=== PATIENT | male | born 1970 | race Two or more races ===

== ENCOUNTER 2020-07-05 07:28 | Day surgery (SDC) | payer MEDICAID ==
[2020-06-29 15:45] LABS: BASOPHILS # (AUTO) 0.1 X10'3 (0-0.2); BASOPHILS % (AUTO) 0.7 % (0-1); EOSINOPHILS # (AUTO) 0.5 X10'3 (0-0.9); EOSINOPHILS % (AUTO) 6.8 % (0-6); LYMPHOCYTES # (AUTO) 2.7 X10'3 (1.1-4.8); LYMPHOCYTES % (AUTO) 34.1 % (21-51); MEAN CORPUSCULAR HEMOGLOBIN 28.9 PG (27.0-31.0); MEAN CORPUSCULAR VOLUME 84.9 FL (78-98); MONOCYTES # (AUTO) 0.6 X10'3 (0-0.9); MONOCYTES % (AUTO) 7.1 % (2-12); NEUTROPHILS # (AUTO) 4.1 X10'3 (1.8-7.7); NEUTROPHILS % (AUTO) 51.3 % (42-75); PRE OP PLATELET COUNT 194 X10'3 (140-440); RED BLOOD COUNT 5.54 X10'6 (4.70-6.10); RED CELL DISTRIBUTION WIDTH 13.6 % (11.5-14.5)
[2020-06-29 15:48] LABS: CLARITY,URINE CLEAR (Clear); COLOR,URINE YELLOW (Yellow); GLUCOSE, URINE NEGATIVE (Neg); KETONES,URINE NEGATIVE (Neg); LEUKOCYTE ESTERASE ,URINE NEGATIVE (Neg); NITRITES, URINE NEGATIVE (Neg); OCCULT BLOOD,URINE NEGATIVE (Neg); PROTEIN,URINE NEGATIVE (Neg)
[2020-06-29 15:50] LABS: UA COLLECTION TYPE CLN CATCH MIDSTREAM
[2020-06-29 16:00] LABS: ALBUMIN 4.1 G/DL (3.4-5.0); ALBUMIN/GLOBULIN RATIO 1.1 (1.1-1.5); ALKALINE PHOSPHATASE 45 IU/L (46-116); BLOOD UREA NITROGEN 21 MG/DL (7-18); BUN/CREATININE RATIO 14.9 (5.4-32.0); CALCIUM 9.3 MG/DL (8.5-10.1); CHLORIDE 106 MMOL/L (99-107); CREATININE 1.41 MG/DL (0.60-1.10); PRE OP ALT 28 U/L (30-65); PRE OP ANION GAP 7 (8-16); PRE OP AST 13 U/L (10-37); PRE OP BILIRUB, TOTAL 0.4 MG/DL (0.0-1.0); PRE OP GLUCOSE 120 MG/DL (70-104); PRE OP POTASSIUM 4.2 MMOL/L (3.4-5.1); PRE OP SODIUM 143 MMOL/L (135-145); TOTAL PROTEIN 7.7 G/DL (6.4-8.2); eGFR 53 ML/MIN
[~2020-07-05] VITALS: Ht 165.1 cm; Wt 114.0 kg
[2020-07-05] VITALS (8 sets, daily range): BP systolic 116–138; BP diastolic 71–77
[~2020-07-05 07:28] MED LIST: CHLO25TA10 PO; GLIM2TAB6 PO; LOSA100T57 PO; METF-438 PO; ceFAZolin 2gm in dextrose, iso 50 ML IV ONE; famotidine 20mg tablet PO ONE; ringers solution, lacted 1,000 ML IV SCH
[2020-07-05] MEDS ORDERED: BUPIVAcaine/PF 2.5 mg/ml (0.25%) 30ml vial ONE (11:48)
[2020-07-05] MEDS ORDERED: neostigmine methylsulfate 1 MG/ML 10ml vial ONE (11:59)
[2020-07-05] MEDS ORDERED: dexamethasone sod phosphate 10mg/ml inj ONE (11:59)
[2020-07-05] MEDS ORDERED: glycopyrrolate 0.2mg/ml inj ONE (11:59)
[2020-07-05] MEDS ORDERED: rocuronium 10mg/ml inj IV ONE ×2 (11:59→12:19)
[2020-07-05] MEDS ORDERED: sevoflurane 250ml liquid IH ONE (11:59)
[2020-07-05] MEDS ORDERED: ondansetron/PF 4mg/2ml inj IV PRN (12:00)
[2020-07-05] MEDS ORDERED: fentaNYL/PF 50MCG/1 ML 2ML syringe IV PRN ×2 (12:00)
[2020-07-05] MEDS ORDERED: morphine 4 MG/ML inj SYRINge IV PRN (12:00)
[2020-07-05] MEDS ORDERED: morphine 2 MG/ML inj. syringe IV PRN (12:00)
[2020-07-05] MEDS ORDERED: labetalol 20mg/4ml (5mg/ml) syringe IV PRN (12:00)
[2020-07-05] MEDS ORDERED: hydrALAZINE 20mg/ml inj. IV PRN (12:00)
[2020-07-05] MEDS ORDERED: ringers solution, lacted 1,000 ML IV SCH (12:00)
[2020-07-05] MEDS ORDERED: midazolam 2 mg/2 ml injection ONE (12:06)
[2020-07-05] MEDS ORDERED: fentaNYL/PF 50MCG/1 ML 2ML syringe ONE ×2 (12:06→13:53)
[2020-07-05] MEDS ORDERED: LIDOcaine 2% (20mg/ml) 5ml vial ONE (12:19)
[2020-07-05] MEDS ORDERED: propofol inj 20 ML IV ONE (12:19)
[2020-07-05] MEDS ORDERED: labetalol 20mg/4ml (5mg/ml) syringe IV ONE (12:22)
[2020-07-05] MEDS ORDERED: ondansetron/PF 4mg/2ml inj ONE (12:25)
--- NOTE | 2020-07-05 14:25 | NUR ---
Received from OR via BED , accompanied by Anesthesiologist DR WING and report given by Anesthesiolgist. PATIENT WAKING UP, DENIES PAIN, V/S WNL, NEUROVASCULAR CHECKS INTACT, 20G PIV RUE, SCD ON, BANDAIDS TO LAP SIGHTS OF ABDOMEN CDI. BG 258 DR WING NOTIFIED, NO NEW ORDERS, PATIENT ADVISED TO TAKE DIABETIC MEDS AFTER D/C ORDERED
[2020-07-05] MEDS ORDERED: HYDROcodone/acetaminophen 10/325mg tab PO ONE (14:45)
--- NOTE | 2020-07-05 15:25 | NUR ---
PATIENT A&OX4, DENIES PAIN, V/S WNL, NEUROVASCULAR CHECKS INTACT, 20G PIV RUE D/C SCD OFF, BANDAIDS TO LAP SIGHTS OF ABDOMEN CDI. BG 258 DR WING NOTIFIED, NO NEW ORDERS, PATIENT ADVISED TO TAKE DIABETIC MEDS AFTER D/C ORDERED AND STUDENT SERVICES DEAN SCRIPT AT [facility] . . I HAVE REVIEWED D/C INSTRUCTIONS WITH PATIENT AND FAMILY AND THEY HAVE VERBALIZED UNDERSTANDING. PATIENT D/C HOME WITH FAMILY TO TRANSPORT AND ALL BELONGINGS..
== END 2020-07-05 15:25 | disposition home or self-care (01) ==
LOC: PAS 07:28
PROVIDERS: ATTEND Surgery
DX: K43.0 Incisional hernia with obstruction, without gangrene (principal); E11.22 Type 2 diabetes mellitus with diabetic chronic kidney disease; I12.9 Hypertensive chronic kidney disease with stage 1 through stage 4 chronic kidney disease, or unspecified chronic kidney disease; N18.9 Chronic kidney disease, unspecified; G47.30 Sleep apnea, unspecified; E66.01 Morbid (severe) obesity due to excess calories; Z68.41 Body mass index [BMI] 40.0-44.9, adult; Z20.828 Contact with and (suspected) exposure to other viral communicable diseases; Z79.899 Other long term (current) drug therapy; Z98.890 Other specified postprocedural states; Z72.89 Other problems related to lifestyle; Z79.84 Long term (current) use of oral hypoglycemic drugs; Z83.3 Family history of diabetes mellitus; Z80.9 Family history of malignant neoplasm, unspecified
CPT/HCPCS: 36415; 49655; 80053; 81003; 82948; 85025; 87635; 93005; C1758; C1781; J2001; J2250; J2405; J2704; J3010; J3490; S2900; A4215; A4618; J1100; J2710; J7120

== ENCOUNTER 2020-10-18 06:41 | Day surgery (SDC) | payer MEDICAID ==
[2020-09-27 15:44] LABS: BASOPHILS # (AUTO) 0.1 X10'3 (0-0.2); BASOPHILS % (AUTO) 0.8 % (0-1); EOSINOPHILS # (AUTO) 0.6 X10'3 (0-0.9); EOSINOPHILS % (AUTO) 6.7 % (0-6); LYMPHOCYTES # (AUTO) 2.8 X10'3 (1.1-4.8); LYMPHOCYTES % (AUTO) 33.1 % (21-51); MEAN CORPUSCULAR HEMOGLOBIN 28.5 PG (27.0-31.0); MEAN CORPUSCULAR HGB CONC 34.2 g/dL (33.0-36.5); MEAN CORPUSCULAR VOLUME 83.3 FL (78-98); MEAN PLATELET VOLUME 8.6 FL (7.4-10.4); MONOCYTES # (AUTO) 0.7 X10'3 (0-0.9); NEUTROPHILS # (AUTO) 4.4 X10'3 (1.8-7.7); NEUTROPHILS % (AUTO) 51.4 % (42-75); PRE OP HEMATOCRIT 47.4 % (42.0-52.0); PRE OP HEMOGLOBIN 16.2 g/dL (14.0-17.9); PRE OP PLATELET COUNT 206 X10'3 (140-440); RED BLOOD COUNT 5.69 X10'6 (4.70-6.10); RED CELL DISTRIBUTION WIDTH 13.6 % (11.5-14.5)
[2020-09-27 15:49] LABS: CLARITY,URINE CLEAR (Clear); COLOR,URINE YELLOW (Yellow); GLUCOSE, URINE NEGATIVE (Neg); KETONES,URINE NEGATIVE (Neg); LEUKOCYTE ESTERASE ,URINE NEGATIVE (Neg); NITRITES, URINE NEGATIVE (Neg); OCCULT BLOOD,URINE NEGATIVE (Neg); PH,URINE 5.5 (4.8-8.0); PROTEIN,URINE NEGATIVE (Neg); UROBILINOGEN,URINE 0.2 E.U/dL (0.2-1.0)
[2020-09-27 15:51] LABS: UA COLLECTION TYPE CLN CATCH MIDSTREAM
[2020-09-27 16:11] LABS: ALBUMIN/GLOBULIN RATIO 1.1 (1.1-1.5); ALKALINE PHOSPHATASE 56 IU/L (46-116); BLOOD UREA NITROGEN 25 MG/DL (7-18); BUN/CREATININE RATIO 20.7 (5.4-32.0); CALCIUM 9.4 MG/DL (8.5-10.1); CHLORIDE 101 MMOL/L (99-107); CREATININE 1.21 MG/DL (0.60-1.10); PRE OP ALT 18 U/L (30-65); PRE OP ANION GAP 9 (8-16); PRE OP AST 13 U/L (10-37); PRE OP BILIRUB, TOTAL 0.4 MG/DL (0.0-1.0); PRE OP GLUCOSE 172 MG/DL (70-104); PRE OP SODIUM 139 MMOL/L (135-145); TOTAL CARBON DIOXIDE 29.4 MMOL/L (24-32); TOTAL PROTEIN 7.6 G/DL (6.4-8.2); eGFR 63 ML/MIN
--- NOTE | 2020-10-10 10:09 | NUR ---
phone pre-op done with pt, instr given. verbal covid screen done. pt was rescheduled from last week due chest cold, per pt it was not covid, pt made aware he would be swabs for covid day of surgery
[2020-10-18] VITALS (16 sets, daily range): BP systolic 98–135; BP diastolic 55–80
[~2020-10-18] VITALS: Ht 165.1 cm; Wt 117.0 kg
[~2020-10-18 06:41] MED LIST changes: +ATOR20TA66 PO; +ceFAZolin inj. 3,000 MG in normal saline 100ml IV soln 100 ML IV ONE
[2020-10-18] MEDS ORDERED: BUPIVAcaine/PF 2.5 mg/ml (0.25%) 30ml vial ONE (06:50)
[2020-10-18] MEDS ORDERED: hydrALAZINE 20mg/ml inj. IV PRN (07:15)
[2020-10-18] MEDS ORDERED: labetalol 20mg/4ml (5mg/ml) syringe IV PRN (07:15)
[2020-10-18] MEDS ORDERED: morphine 2 MG/ML inj. syringe IV PRN (07:15)
[2020-10-18] MEDS ORDERED: ondansetron/PF 4mg/2ml inj IV PRN (07:15)
[2020-10-18] MEDS ORDERED: morphine 4 MG/ML inj SYRINge IV PRN (07:15)
[2020-10-18] MEDS ORDERED: ringers solution, lacted 1,000 ML IV SCH (07:15)
[2020-10-18] MEDS ORDERED: fentaNYL/PF 50MCG/1 ML 2ML syringe IV PRN ×2 (07:15)
[2020-10-18] MEDS ORDERED: neostigmine methylsulfate 1 MG/ML 10ml vial ONE (10:30)
[2020-10-18] MEDS ORDERED: dexamethasone sod phosphate 10mg/ml inj ONE (10:30)
[2020-10-18] MEDS ORDERED: sevoflurane 250ml liquid IH ONE (10:30)
[2020-10-18] MEDS ORDERED: fentaNYL/PF 50MCG/1 ML 2ML syringe ONE ×2 (10:38→10:56)
[2020-10-18] MEDS ORDERED: midazolam 1 mg/ML 2ml injection ONE (10:38)
[2020-10-18] MEDS ORDERED: rocuronium 10mg/ml inj IV ONE ×2 (10:50→12:08)
[2020-10-18] MEDS ORDERED: LIDOcaine 2% (20mg/ml) 5ml vial ONE (10:50)
[2020-10-18] MEDS ORDERED: propofol inj 20 ML IV ONE (10:50)
[2020-10-18] MEDS ORDERED: glycopyrrolate 0.2mg/ml inj ONE (10:51)
[2020-10-18] MEDS ORDERED: ondansetron/PF 4mg/2ml inj ONE (10:51)
--- NOTE | 2020-10-18 12:55 | NUR ---
Received from OR via [facility], accompanied by Anesthesiologist DR WING and report given by Anesthesiologist. PT DROWSY, DENIES PAIN, ABDOMEN W/3 LAP SITES W/DERMABOND CDI. Addendum: 10/18/20 at 1313 by Anne Marie Lees RN Amended: Links added.
--- NOTE | 2020-10-18 16:15 | NUR ---
PT UP AND ABLE TO AMBULATE SAFELY, BLADDER SCANNED FOR 200 ML, PT WAS ABLE TO VOID 100 ML, PRV SCANNED FOR 106 ML, CALLED DR ESCOBAR, UPDATED, STEFFI TO D/C PT TO HOME. D/C INSTRUCTIONS GIVEN AND GONE OVER W/PT AND PTS WHO VERBALIZED UNDERSTANDING. PT D/CD TO HOME VIA W/C TO PRIVATE VEHICLE W/O INCIDENT. Addendum: 10/18/20 at 1636 by Anne Marie Lees RN Amended: Links added.
== END 2020-10-18 16:15 | disposition home or self-care (01) ==
LOC: PAS 06:41
PROVIDERS: ATTEND Surgery
DX: K40.90 Unilateral inguinal hernia, without obstruction or gangrene, not specified as recurrent (principal); Z20.822 Contact with and (suspected) exposure to COVID-19; D17.6 Benign lipomatous neoplasm of spermatic cord; E66.01 Morbid (severe) obesity due to excess calories; Z68.39 Body mass index [BMI] 39.0-39.9, adult; G47.30 Sleep apnea, unspecified; I10 Essential (primary) hypertension; E11.9 Type 2 diabetes mellitus without complications; Z79.84 Long term (current) use of oral hypoglycemic drugs; Z79.899 Other long term (current) drug therapy; Z98.890 Other specified postprocedural states; Z83.3 Family history of diabetes mellitus
CPT/HCPCS: 36415; 49650; 80053; 81003; 82948; 85025; 87635; C1758; C1781; J1100; J2001; J2250; J2270; J2405; J2704; J2710; J3010; J3490; S2900; A4215; A4618; J0690; J7120